=== PATIENT | female | born 1940 | race Caucasian/White ===

== ENCOUNTER 2017-09-27 13:58 | Outpatient (CLI) | payer OTHER | END 2017-09-27 14:01 | disposition home or self-care (01) | LOC: RAD 13:58 | DX: M54.5 Low back pain (principal); S79.911A Unspecified injury of right hip, initial encounter ==

== ENCOUNTER 2017-10-24 10:00 | Outpatient (CLI) | payer OTHER | END 2017-10-24 14:50 | disposition home or self-care (01) | LOC: MRI 10:00 | DX: G45.9 Transient cerebral ischemic attack, unspecified (principal); M54.5 Low back pain | CPT/HCPCS: 70551; 72148 ==

== ENCOUNTER 2017-11-17 07:40 | Outpatient (CLI) | payer OTHER | END 2017-11-17 07:42 | disposition home or self-care (01) | LOC: NUCLEAR 07:40 | DX: G45.8 Other transient cerebral ischemic attacks and related syndromes (principal) ==

== ENCOUNTER 2017-11-30 08:38 | Outpatient (CLI) | payer OTHER | END 2017-11-30 08:56 | disposition home or self-care (01) | LOC: NUCLEAR 08:38 | DX: I11.9 Hypertensive heart disease without heart failure (principal); I20.9 Angina pectoris, unspecified | CPT/HCPCS: 78452; 93017; A9500; J0153 ==

== ENCOUNTER 2018-02-27 10:31 | Outpatient (CLI) | payer OTHER | END 2018-02-27 11:16 | disposition home or self-care (01) | LOC: RAD 501 10:31 | DX: J44.1 Chronic obstructive pulmonary disease with (acute) exacerbation (principal); S09.90XA Unspecified injury of head, initial encounter ==

== ENCOUNTER 2018-09-24 08:53 | Outpatient (CLI) | payer OTHER | END 2018-09-24 11:00 | disposition home or self-care (01) | LOC: SONOGRAMA 08:53 | DX: R10.9 Unspecified abdominal pain (principal) ==

== ENCOUNTER 2018-10-30 07:05 | Outpatient (CLI) | payer OTHER | END 2018-10-30 07:15 | disposition home or self-care (01) | LOC: TOM 07:05 | DX: R10.9 Unspecified abdominal pain (principal) ==

== ENCOUNTER → 2019-01-29 | Outpatient (CLI) | payer OTHER | END | disposition home or self-care (01) | LOC: NUCLEAR 12:20 | DX: I82.409 Acute embolism and thrombosis of unspecified deep veins of unspecified lower extremity (principal) ==

== ENCOUNTER 2019-04-24 07:20 | Outpatient (CLI) | payer OTHER | END 2019-04-24 08:30 | disposition home or self-care (01) | LOC: SONOGRAMA 07:20 → MAMO-SONO 08:15 → SONOGRAMA 08:30 | DX: J45.50 Severe persistent asthma, uncomplicated (principal); J44.9 Chronic obstructive pulmonary disease, unspecified; J84.10 Pulmonary fibrosis, unspecified; E55.9 Vitamin D deficiency, unspecified; I11.9 Hypertensive heart disease without heart failure; E03.8 Other specified hypothyroidism; E11.69 Type 2 diabetes mellitus with other specified complication; R10.84 Generalized abdominal pain; E04.2 Nontoxic multinodular goiter ==

== ENCOUNTER 2019-05-30 07:07 | Outpatient (CLI) | payer OTHER | END 2019-05-30 08:35 | disposition home or self-care (01) | LOC: NUCLEAR 07:07 | DX: R10.9 Unspecified abdominal pain (principal) | CPT/HCPCS: 78227; A9537 ==

== ENCOUNTER 2019-06-07 08:35 | Outpatient (CLI) | payer OTHER | END 2019-06-07 08:39 | disposition home or self-care (01) | LOC: SONOGRAMA 08:35 | DX: E04.1 Nontoxic single thyroid nodule (principal) ==

== ENCOUNTER → 2020-07-20 | Outpatient (CLI) | payer OTHER | END | disposition home or self-care (01) | LOC: RAD 13:09 | PROVIDERS: ATTEND Internal Medicine | DX: M41.87 Other forms of scoliosis, lumbosacral region (principal); M54.6 Pain in thoracic spine; M54.5 Low back pain; S22.42XA Multiple fractures of ribs, left side, initial encounter for closed fracture ==

== ENCOUNTER 2021-02-11 08:14 | Outpatient (CLI) | payer OTHER | END 2021-02-11 08:21 | disposition home or self-care (01) | LOC: TOM 08:14 | PROVIDERS: ATTEND Internal Medicine | DX: K92.1 Melena (principal) ==

== ENCOUNTER → 2022-01-17 | Outpatient (CLI) | payer OTHER | END | disposition home or self-care (01) | LOC: TOM 07:48 | PROVIDERS: ATTEND Internal Medicine | DX: R10.9 Unspecified abdominal pain (principal) ==